=== PATIENT | male | born 1985 ===

== ENCOUNTER 2018-04-23 11:34 | Emergency (ER) | payer SELFPAY ==
[~2018-04-23] VITALS: Ht 177.8 cm; Wt 72.6 kg
[2018-04-23 11:44] VITALS: Ht 177.8 cm; Wt 72.6 kg
[2018-04-23 13:00] VITALS: BP 134/77
== END 2018-04-23 13:00 | disposition other institution (70) ==
LOC: ED 11:34
DX: F15.10 Other stimulant abuse, uncomplicated (principal); G47.00 Insomnia, unspecified
CPT/HCPCS: J2060

== ENCOUNTER 2018-04-23 11:34 | Emergency (ER) | payer OTHER | END 2018-04-23 13:00 | disposition other institution (70) | LOC: ED 11:34 | DX: Z02.89 Encounter for other administrative examinations (principal) ==